=== PATIENT | female | born 1965 | race Caucasian/White ===

== ENCOUNTER 2018-06-10 08:58 | Day surgery (SDC) | payer OTHER ==
[2018-06-10] MEDS ORDERED: PROPOFOL 40 ML (12:14)
== END 2018-06-10 15:40 | disposition home or self-care (01) ==
LOC: GIL 08:58
DX: Z12.11 Encounter for screening for malignant neoplasm of colon (principal); K64.8 Other hemorrhoids
CPT/HCPCS: 45378